=== PATIENT | female | born 1985 | race African-American/Black ===

== ENCOUNTER 2019-01-28 20:27 | Emergency (ER) | payer OTHER, MEDICAID ==
[~2019-01-28] VITALS: Ht 157.5 cm; Wt 92.1 kg
[2019-01-28] MEDS ORDERED: ASPIR 8181 MG PO (20:32)
[2019-01-28] MEDS ORDERED: NORVASC2.5 MG PO (20:32)
[2019-01-28] MEDS ORDERED: HYDROCHLOROTH12.5 M1 PO (20:33)
[2019-01-28] MEDS ORDERED: PROTONIX40 M1 PO (20:33)
[2019-01-28] MEDS ORDERED: KLOR-CON 1010 MEQ PO (20:33)
[2019-01-28] MEDS ORDERED: LIPITOR10 MG PO (20:33)
[2019-01-28 20:59] LABS: ABSOLUTE EOSINOPHILS 0.1 thou/uL (0.0-0.7); ABSOLUTE LYMPHOCYTES 3.8 thou/uL (0.8-5.3); ABSOLUTE MONOCYTES 0.5 thou/uL (0.0-1.2); ABSOLUTE NEUTROPHILS 3.8 thou/uL (1.6-8.1); BASOPHILS 0.5 %; EOSINOPHILS 0.7 %; HEMATOCRIT 35.8 % (37.0-47.0); HEMOGLOBIN 11.7 gm/dL (12.0-15.0); LYMPHOCYTES 46.2 %; MCH 28.4 pg (26.0-34.0); MCHC 32.7 g/dL (28.0-37.0); MONOCYTES 6.2 %; MPV 7.9 fl. (7.2-11.1); NUCLEATED RBCS 0 /100WBC; PLATELET COUNT* 307 thou/uL (150-400); POLYS 46.4 %; RBC 4.12 mil/uL (4.20-5.00); RDW-CV 14.1 % (10.5-14.5); WBC 8.3 thou/uL (4.0-11.0)
[2019-01-28 21:07] LABS: INR 1.1
[2019-01-28 21:18] LABS: NT-PRO BRAIN NAT PEPTIDE 8 pg/mL (<300); TROPONIN-I LEVEL <0.06 ng/mL (<0.06)
[2019-01-29 00:24] VITALS: BP 116/73
--- NOTE | 2019-01-29 17:15 | EKG ---
[place] [address] ELECTROCARDIOGRAM REPORT Name: KRISTEN DONATO Room: [facility]#: [id number] Admission: 01/28/19 Attend Phys: Discharge: 01/29/19 Date of : 83 Report #: [id number] THIS REPORT FOR: //name// [facility] ED Test Date: 2019-01-28 Test Time: 20:32:28 Pat Name: KRISTEN DONATO Department: Room: Gender: F [employer] Repairer: RUBÉN : 1985 Requested By: Leah Spencer Order Number: [id number] Reading MD: Semaj Ulloa Measurements Intervals [place] Rate: 74 P: 15 ID: [id number] QRS: 20 QRSD: 85 T: 8 QT: 380 QTc: 422 Interpretive Statements Sinus rhythm No previous ECG available for comparison Electronically Signed On 01-29-2019 17:15:36 CDT by Semaj Ulloa [email or web address] <ELECTRONICALLY SIGNED> By: Semaj Ulloa MD, [facility] 01/29/19 1715 203 31 Semaj Ulloa MD, FACC /EPI
== END 2019-01-29 00:25 | disposition short-term general hospital (02) ==
LOC: M.ERS 20:27
PROVIDERS: Emergency Medicine
DX: L02.415 Cutaneous abscess of right lower limb (principal); R07.89 Other chest pain; E78.00 Pure hypercholesterolemia, unspecified; Z88.8 Allergy status to other drugs, medicaments and biological substances; Z95.5 Presence of coronary angioplasty implant and graft